=== PATIENT | female | born 1965 | race Caucasian/White ===

== ENCOUNTER 2017-01-28 12:40 | Day surgery (SDC) | payer OTHER ==
[~2017-01-28] VITALS: Ht 172.7 cm; Wt 81.0 kg
[~2017-01-28 12:40] MED LIST: ATRV10T PO; ERGO2000 PO; FENO67CA PO; LORA1TAB PO; Sodium Biphos-Phos 133 mL Enema RECTAL PRN; Sodium Chloride LOK Flush 10 mL Syringe IV PRN; fentaNYL-PF 50 mCg/mL 2 mL Inj IVPUSH PRN
[2017-01-28 13:31] VITALS: BP 122/88; PULSE 78; RESP 20; O2SAT 96
[2017-01-28] MEDS: 0.9% Sodium Chloride 1,000 ML IV SCH ×2 (14:12→14:19)
[2017-01-28 14:21] VITALS: BP 102/58; PULSE 77; RESP 16; O2SAT 96
[2017-01-28 14:32] VITALS: BP 101/56; PULSE 83; RESP 16; O2SAT 97
--- NOTE | 2017-01-28 15:10 | ENDO ---
[address] [address] ENDOSCOPY PROCEDURE PATIENT: PRESLEY KRAUSE : 1965 MR#: [id number] ADMIT: 01/28/2017 JOB ID: [id number] DATE: 01/28/2017 PRE-PROCEDURE DIAGNOSIS: Terminal ileitis, personal history of colon polyp. POSTPROCEDURE DIAGNOSIS: Normal colonoscopy with terminal ileoscopy. PROCEDURE: Colonoscopy with terminal ileoscopy. ENDOSCOPIST: Dr. Hossein Mendoza MEDICATIONS: 1. Versed 7 mg. 2. Fentanyl 150 mcg. 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 She then had repeat colonoscopy in April of 2016. Then in early November she developed an episode of abdominal pain and was seen in the emergency department at [facility] in [place]. She had some mesenteric edema as well as thickening of the terminal ileum on CT scan. She was treated with antibiotics and improved. After discussion of risks and benefits, she agreed to proceed with colonoscopy with terminal ileoscopy. FINDINGS: She had a widely patent right colon to terminal ileum anastomosis with no evidence of stenosis. The terminal ileum was endoscopically normal. DESCRIPTION OF PROCEDURE: Procedural sedation was achieved. The patient was connected to hemodynamic monitoring, pulse oximetry, capnography. After digital rectal examination, which revealed a firm external hemorrhoid, the PCF H 180 AL colonoscope was inserted and passed under visualization. The scope was inserted until the [id number] ileal colonic anastomosis was visualized. It was widely patent with no evidence of mass lesion, no stricture. The terminal ileum was intubated and the scope was passed for 10-20 cm. The terminal ileum was endoscopically normal, so no biopsies were taken. The scope was then withdrawn and carefully retroflexed in the rectum. No polyps or mucosal abnormalities were identified. Retroflexion revealed some small internal hemorrhoids. The scope was withdrawn and the procedure terminated. She tolerated the entire procedure well. RECOMMENDATIONS: She should have a repeat screening colonoscopy in five years.
== END 2017-01-28 23:59 | disposition home or self-care (01) ==
LOC: END 12:40
PROVIDERS: ATTEND Student in an Organized Health Care Education/Training Program
DX: K50.00 Crohn's disease of small intestine without complications (principal); R10.31 Right lower quadrant pain; E78.5 Hyperlipidemia, unspecified; R25.1 Tremor, unspecified; F17.210 Nicotine dependence, cigarettes, uncomplicated; Z86.010 Personal history of colon polyps
CPT/HCPCS: 45378; 99153; G0500; J2250; J3010; J7030